=== PATIENT | male | born 1935 | race Caucasian/White ===

== ENCOUNTER 2016-11-22 10:00 | Outpatient (RCR) | payer OTHER ==
[~2016-11-22 10:00] MED LIST: COZAAR25 MG ORAL; LOVASTATIN10 MG ORAL
== END 2016-12-20 | disposition home or self-care (01) ==
LOC: PTY 10:00
DX: R53.81 Other malaise (principal)
CPT/HCPCS: 97110; 97140; G0283

== ENCOUNTER 2016-12-27 12:50 | Outpatient (RCR) | payer OTHER | END 2017-01-17 | disposition home or self-care (01) | LOC: PTY 12:50 | DX: R53.81 Other malaise (principal) | CPT/HCPCS: 97110; 97140; G0283 ==

== ENCOUNTER 2017-02-09 10:45 | Outpatient (RCR) | payer OTHER | END 2017-02-17 | disposition home or self-care (01) | LOC: PTY 10:45 | DX: R53.81 Other malaise (principal); M54.5 Low back pain; Z91.040 Latex allergy status; Z88.8 Allergy status to other drugs, medicaments and biological substances ==

== ENCOUNTER 2017-03-03 11:00 | Outpatient (RCR) | payer OTHER | END 2017-03-19 | disposition home or self-care (01) | LOC: PTY 11:00 | DX: R53.81 Other malaise (principal); M54.5 Low back pain ==

== ENCOUNTER 2017-04-12 13:00 | Outpatient (RCR) | payer OTHER | END 2017-04-19 | disposition home or self-care (01) | LOC: PTY 13:00 | DX: R53.81 Other malaise (principal); M54.5 Low back pain ==

== ENCOUNTER 2017-04-28 11:00 | Outpatient (RCR) | payer OTHER | END 2017-05-19 | disposition home or self-care (01) | LOC: PTY 11:00 | DX: R53.81 Other malaise (principal); M54.5 Low back pain ==

== ENCOUNTER 2017-05-24 11:00 | Outpatient (RCR) | payer OTHER | END 2017-06-19 | disposition home or self-care (01) | LOC: PTY 11:00 | DX: M54.5 Low back pain (principal); R53.1 Weakness ==